=== PATIENT | female | born 1975 | race African-American/Black ===

== ENCOUNTER 2020-01-07 13:08 | Emergency (ER) | payer OTHER, MEDICAID ==
[~2020-01-07] VITALS: Ht 144.8 cm; Wt 84.0 kg
[2020-01-07] MEDS ORDERED: HYDROCODONE/ACETAMINOPHEN 5/325MG TABLET PO STA (16:40)
[2020-01-07 17:01] VITALS: BP 164/96
== END 2020-01-07 17:16 | disposition home or self-care (01) ==
LOC: ER 13:50
DX: M54.31 Sciatica, right side (principal); Z88.6 Allergy status to analgesic agent
CPT/HCPCS: 99282

== ENCOUNTER 2021-01-09 15:29 | Emergency (ER) | payer MEDICAID, OTHER ==
[~2021-01-09] VITALS: Ht 144.8 cm; Wt 90.0 kg
[~2021-01-09 15:29] MED LIST: LEVO500T2 MT
[2021-01-09 17:04] VITALS: BP 133/54
[2021-01-09] MEDS ORDERED: DIPH25CA83 MT (17:18)
[2021-01-09] MEDS ORDERED: DIPHENHYDRAMINE 50MG/ML VIAL IM ONE (17:30)
== END 2021-01-09 17:37 | disposition home or self-care (01) ==
LOC: ER 15:29
DX: T78.1XXA Other adverse food reactions, not elsewhere classified, initial encounter (principal); L50.0 Allergic urticaria; R22.0 Localized swelling, mass and lump, head; X58.XXXA Exposure to other specified factors, initial encounter
CPT/HCPCS: 81025; 96372; 99283; J1200

== ENCOUNTER 2021-08-27 10:56 | Emergency (ER) | payer MEDICAID, OTHER ==
[~2021-08-27] VITALS: Ht 144.8 cm; Wt 81.0 kg
[~2021-08-27 10:56] MED LIST changes: +DIPH25CA83 MT
[2021-08-27 11:02] VITALS: BP 147/101
[2021-08-27] MEDS ORDERED: ONDANSETRON HCL 4MG/2ML INJ IV ONE (12:00)
[2021-08-27 12:41] LABS: BASOPHILS % 0.2 % (0.0-2.0); EOSINOPHILS % 0.2 % (0.0-5.0); HEMATOCRIT. 42.3 % (36.0-48.0); HEMOGLOBIN. 14.4 g/dL (12.0-16.0); LYMPHOCYTES % 12.3 % (20.0-50.0); MEAN CORPUSCULAR HEMOGLOBIN 33.9 pg (28.0-32.0); MEAN CORPUSCULAR VOLUME 99.7 fL (81.0-99.0); MONOCYTES % 7.4 % (2.0-8.0); NEUTROPHILS % 79.9 % (40.0-76.0); PLATELET 342 x1000/uL (130-400); RED BLOOD CELL COUNT 4.25 mill/uL (4.2-5.4); RED CELL DISTRIBUTION WIDTH 12.7 % (11.6-14.6)
[2021-08-27 12:49] LABS: CHLORIDE 103 mEq/L (98-107)
[2021-08-27 12:49] LABS: CLARITY URINE CLOUDY (CLEAR); COLOR URINE DARK YELLOW (YELLOW); KETONES URINE 1+ (NEGATIVE); LEUKOCYTE ESTERASE URINE TRACE (NEGATIVE); NITRITE URINE NEGATIVE (NEGATIVE); OCCULT BLOOD URINE 3+ (NEGATIVE); PH URINE 5.5 (4.5-8.0); PROTEIN URINE 2+ (NEGATIVE); SPECIFIC GRAVITY URINE 1.031 (1.005-1.030)
[2021-08-27 12:55] LABS: HCG SCREEN NEGATIVE
[2021-08-27] MEDS ORDERED: CEPH500T MT (12:59)
[2021-08-27] MEDS ORDERED: MORPHINE SULFATE 4 MG/ML CPJ (NOT FOR IM USE) IV ONE (13:00)
[2021-08-27] MEDS ORDERED: SODIUM CHLORIDE 0.9% 1,000 ML IV ONE (13:00)
[2021-08-27] MEDS ORDERED: POTASSIUM CHLORIDE 20MEQ TABLET SR PO NR (13:15)
== END 2021-08-27 16:16 | disposition home or self-care (01) ==
LOC: ER 11:12
DX: N39.0 Urinary tract infection, site not specified (principal); Z88.6 Allergy status to analgesic agent
CPT/HCPCS: 36415; 76705; 80053; 81003; 81025; 83690; 84703; 85025; 93005; 96374; 96375; 99285; J2270; J2405; J7030